=== PATIENT | female | born 1970 | race Hispanic/Latino ===

== ENCOUNTER 2021-08-20 20:08 | Emergency (ER) | payer SELFPAY, OTHER | END 2021-08-20 21:10 | disposition left against medical advice (07) | LOC: MADERS 20:08 | DX: Z53.21 Procedure and treatment not carried out due to patient leaving prior to being seen by health care provider (principal) ==

== ENCOUNTER 2021-08-29 15:37 | Outpatient (CLI) | payer OTHER, SELFPAY | END 2021-08-29 15:38 | disposition home or self-care (01) | LOC: MADRAD 15:37 | PROVIDERS: ATTEND Neurological Surgery | DX: S13.4XXA Sprain of ligaments of cervical spine, initial encounter (principal); M50.322 Other cervical disc degeneration at C5-C6 level | CPT/HCPCS: 72040 ==

== ENCOUNTER 2021-09-03 11:36 | Outpatient (CLI) | payer SELFPAY | END 2021-09-03 11:37 | disposition home or self-care (01) | LOC: MADLAB 11:36 → MADRAD 11:37 | PROVIDERS: ATTEND Neurological Surgery | DX: S13.4XXA Sprain of ligaments of cervical spine, initial encounter (principal); M47.812 Spondylosis without myelopathy or radiculopathy, cervical region | CPT/HCPCS: 72040 ==